=== PATIENT | female | born 1980 | race Asian ===

== ENCOUNTER 2018-05-25 17:08 | Emergency (ER) | payer MEDICAID, OTHER ==
[~2018-05-25] VITALS: Ht 160 cm; Wt 59.0 kg
[2018-05-25 17:14] VITALS: BP 107/87
[2018-05-25] MEDS ORDERED: BACLOFEN 10 MG TAB PO ONE (19:30)
[2018-05-25] MEDS ORDERED: HYDROcodone-ACET 10/325MG TAB PO ONE (20:00)
== END 2018-05-25 20:35 | disposition home or self-care (01) ==
LOC: EDBD 17:08 → ER 17:08
DX: S20.219A Contusion of unspecified front wall of thorax, initial encounter (principal); M62.838 Other muscle spasm; Z87.891 Personal history of nicotine dependence; V00.311A Fall from snowboard, initial encounter; Y93.23 Activity, snow (alpine) (downhill) skiing, snowboarding, sledding, tobogganing and snow tubing; Y99.8 Other external cause status; Y92.89 Other specified places as the place of occurrence of the external cause
CPT/HCPCS: 71046; 71111; 74018